=== PATIENT | female | born 1990 | race Caucasian/White ===

== ENCOUNTER 2019-02-04 05:32 | Inpatient (IN) | payer OTHER ==
[2019-02-04] VITALS (18 sets, daily range): BP systolic 97–127; BP diastolic 48–70; PULSE 70–102; TEMP 97.7–98.4
[~2019-02-04] VITALS: Ht 170.2 cm; Wt 106.8 kg
[~2019-02-04 05:32] MED LIST: ATROVENT INHALE14 GM; DEPO-PROVE150 MG/1 M IM; FLINTSTONES W/I1 CTB PO; IBU600 MG PO; MOTRIN 600600 MG/TAB PO; NO HOME MEDICATIONS; NORCO 325 MG-51 TAB PO; PERCOCET 325 MG1 TA2 PO; PROTONIX20 MG PO; PROVENTIL0.09 MG/A1 IH; ZANTAC 300300 MG PO
--- NOTE | 2019-02-04 06:15 | NUR ---
0630-RECIEVED REPORT FROM FRANK COLON WHO ADMITTED PATIENT FOR SCHEUDLED REPEAT C/S. PATIENT IN ROOM ON EFM WITH SPOUSE AT BEDSIDE. VSS, FHR WITH INTERMITTENT TRACING, RN ADJUSTS EFM AND REPOSITIONS PATIENT LL. ASSESSMENT COMPLETE. UPDATED ON PLAN OF CARE. MONS PUBIS CLIPPED WITH CLIPPERS, ABDOMEN WASHED WITH HIBICLENSE. 3638-AMBULATORY TO OR WITH PATIENT AND SPOUSE.
[2019-02-04] MEDS ORDERED: PRENATAL (06:37)
[2019-02-04 06:58] LABS: BASO # 0.1 (0.0-0.2); BASO % 0.5 % (0.0-2.0); EOS # 0.1 (0.0-0.7); EOS % 0.6 % (0-4.0); GRAN # 7.1 (1.4-6.5); GRAN % 64.8 % (42.2-75.2); HEMATOCRIT 33.7 % (37.0-47.0); HEMOGLOBIN 10.6 g/dl (12.5-16.0); LYMPH # 2.6 (1.2-3.4); LYMPH % 23.7 % (20.0-51.0); MEAN CELL VOLUME 80 fl (80.0-100.0); MEAN CORPUSCULAR HEMOGLOBIN 25 pg (27.0-31.0); MEAN CORPUSCULAR HGB CONC 32 g/dl (33.0-37.0); MEAN PLATELET VOLUME 10.1 fl (7.4-10.4); MONO % 9.2 % (1.7-9.3); PLATELET COUNT 274 K/mm3 (130-400); REDCELL DISTRIBUTION WIDTH-CV 15.9 % (11.5-14.5)
--- NOTE | 2019-02-04 08:25 | NUR ---
0825-PATIENT TO PACU VIA BED. A&O X4. DENIES PAIN. VSS, SEE PACU FLOW RECORD. REPORT RECIEVED FROM DIMA JJ. ASSESSMENT COMPLETE, ABDOMINAL BINDER IN PLACE. ABDOMEN SOFT,ROUND. DRESSING TO ABDOMEN C/D/I. FUNDAL MASSAGE FIRM. LOCHIA WNL. VERDUZCO TO DD, CLEAR YELLOW URINE RETURN. UPDATED ON PLAN OF CARE.
--- NOTE | 2019-02-04 09:00 | NUR ---
0900-PATIENT TO ROOM VIA BED. VSS, SEE FLOW RECORD. PATIENT COMFORTABLE WITHOUT ORAL PAIN MEDICATION. UPDATED ON PLAN OF CARE. FUNDAL MASSAGE FIRMNAYANA.
--- NOTE | 2019-02-04 09:09 | NUR ---
Initial visit; Mom not yet back to room, Optical [employer] Layout Person offered congratulations to Dad, Grandparents and brothers and sister of the new baby girl. All were elated and thankful for the new baby.
--- NOTE | 2019-02-04 10:00 | NUR ---
1000-REPORTED OFF TO FRANK CASAREZ WHO WILL ASSUME CARE OF PATIENT AT THIS TIME.
[2019-02-05 00:45] VITALS: BP 103/48; PULSE 73; TEMP 97.9
[2019-02-05 07:05] VITALS: BP 108/64; PULSE 72; TEMP 97.8
[2019-02-05 07:19] LABS: HEMATOCRIT 32.2 % (37.0-47.0)
[2019-02-05] MEDS ORDERED: PERCOCET 325 MG1 TA2 PO (07:54)
[2019-02-05] MEDS ORDERED: IBU600 MG PO (07:54)
--- NOTE | 2019-02-05 09:46 | NUR ---
Follow-up; News Clipping Cutter attempt to follow up, nurse was with patient, News Clipping Cutter left card of congratulations for the of her daughter and information regarding the availability of Spiritual Care at our hospital.
== END 2019-02-05 14:08 | disposition home or self-care (01) | DRG 788 ==
LOC: OB 05:32 → LDR 06:23 → OB 02-05 14:08
PROVIDERS: ADMIT Obstetrics & Gynecology
PROC: 10D00Z1 Extraction of Products of Conception, Low, Open Approach (ICD-10-PCS; principal; 2019-02-04)
DX: O34.211 Maternal care for low transverse scar from previous cesarean delivery (principal); N85.8 Other specified noninflammatory disorders of uterus; Z3A.39 39 weeks gestation of pregnancy; Z37.0 Single live birth; Z87.891 Personal history of nicotine dependence; O99.214 Obesity complicating childbirth; O99.02 Anemia complicating childbirth; D64.9 Anemia, unspecified; J45.909 Unspecified asthma, uncomplicated; O75.9 Complication of labor and delivery, unspecified
CPT/HCPCS: J0171; J0690; J1885; J2175; J2370; J2405; J2590; J3010; J7120